=== PATIENT | male | born 1965 | race African-American/Black ===

== ENCOUNTER 2022-08-08 09:50 | Observation (INO) | payer OTHER ==
[2022-08-08] MEDS ORDERED: ACETAMINOPHEN 1000 MG/100 ML BAG IVPB ONE (10:24)
[2022-08-08] MEDS ORDERED: ACETAMINOPHEN INJECTION 100 ML IVPB ONE (10:47)
[2022-08-08 10:53] LABS: EOS % 1.5 % (0-4.5); HEMATOCRIT 42.7 % (35.4-49); HEMOGLOBIN 14.3 GM/dL (11.7-16.9); LYMPH % 30.5 % (8-40); MCH 33.4 pg (25.7-33.7); MCHC 33.4 g/dl (32.0-35.9); MEAN PLT VOLUME 7.3 fl (7.5-11.1); MONO % 6.7 % (3.8-10.2); NEUT % 60.3 % (42.8-82.8); PLATELET COUNT 256 10^3/uL (134-434); RBC 4.27 M/mm3 (4.00-5.60); RDW 13.8 % (11.9-15.9); WHITE BLOOD COUNT 6.2 K/mm3 (4.0-10.0)
[2022-08-08 11:04] LABS: EPI CELLS 1 /uL (0-25.1); HYALINE CASTS 0 /uL (0-3.1); URINE APPEARANCE CLEAR; URINE BACTERIA 10 /uL (0-1359); URINE BILIRUBIN NEGATIVE (NEGATIVE); URINE COLOR YELLOW; URINE GLUCOSE (UA) NEGATIVE (NEGATIVE); URINE KETONE NEGATIVE (NEGATIVE); URINE LEUK ESTERASE NEGATIVE (NEGATIVE); URINE NITRITE NEGATIVE (NEGATIVE); URINE PROTEIN 1+ (NEGATIVE); URINE RBC 15 /uL (0-23.9); URINE UROBILINOGEN 0.2 mg/dL (0.2-1.0); URINE WBC 1 /uL (0-25.8)
[2022-08-08 11:13] LABS: BLOOD UREA NITROGEN 10.4 mg/dL (7-18)
[2022-08-08 11:14] LABS: ALBUMIN 3.5 g/dl (3.4-5.0)
[2022-08-08 11:16] LABS: CREATININE 0.9 mg/dL (0.55-1.3)
[2022-08-08 11:18] LABS: BILIRUBIN,TOTAL 0.4 mg/dL (0.2-1); TOT PROT 7.1 g/dl (6.4-8.2)
[2022-08-08] MEDS ORDERED: LISINOPRIL 20 MG TABLET PO ONE (11:24)
[2022-08-08] MEDS ORDERED: KETOROLAC TROMETHAMINE 30 MG/1 ML VIAL IM ONE (13:36)
[2022-08-08] MEDS ORDERED: KETOROLAC TROMETHAMINE 30 MG/1 ML VIAL ONE (14:01)
[2022-08-08] MEDS ORDERED: LISINOPRIL 20 MG TABLET ONE (14:01)
[2022-08-08] MEDS ORDERED: oxyCODONE HCL 5 MG TABLET PO ONE (15:08)
[2022-08-08] MEDS ORDERED: LIDOCAINE 5% TOPICAL PATCH TP ONE ×2 (15:09→15:10)
[2022-08-08] MEDS ORDERED: KETOROLAC TROMETHAMINE 15 MG/ML VIAL IVPUSH ONE (15:12)
[2022-08-08] MEDS ORDERED: oxyCODONE HCL 5 MG TABLET ONE (16:06)
[2022-08-08] MEDS ORDERED: LIDOCAINE 5% TOPICAL PATCH ONE (16:06)
[2022-08-08] MEDS ORDERED: KETOROLAC TROMETHAMINE 15 MG/ML VIAL ONE (16:07)
[2022-08-08] MEDS ORDERED: morphine CARPU-JECT 4 MG/1 ML DISP.SYRIN IVPUSH ONE (17:20)
[2022-08-08] MEDS ORDERED: COLCHICINE 0.6 MG TAB PO ONE ×2 (17:21→18:00)
[2022-08-08] MEDS ORDERED: ACETAMINOPHEN 1000 MG/100 ML BAG IVPB PRN (18:01)
[2022-08-08] MEDS ORDERED: morphine SULFATE 4 MG/ML VIAL ONE (20:09)
[2022-08-08] MEDS ORDERED: COLCHICINE 0.6 MG TAB ONE (20:09)
[2022-08-08] MEDS ORDERED: predniSONE 20 MG TABLET (UD) ONE (20:09)
[2022-08-08] MEDS: predniSONE 20 MG TABLET (UD) PO SCH (20:16)
[2022-08-08] MEDS ORDERED: LIDOCAINE PATCH REMOVAL MC SCH ×2 (22:00)
[2022-08-08] MEDS: NAPROXEN 500 MG TABLET PO SCH (23:54)
[2022-08-09 00:14] VITALS: RESP 20; BMI 46.1
[2022-08-09 07:11] VITALS: TEMP 98
[2022-08-09] MEDS ORDERED: ACETAMINOPHEN 325 MG TABLET (FP) PO PRN (09:39)
[2022-08-09] MEDS ORDERED: LISINOPRIL 20 MG TABLET PO SCH (10:00)
[2022-08-09] MEDS ORDERED: COLCHICINE 0.6 MG TAB PO SCH (10:00)
[2022-08-09] MEDS ORDERED: amLODIPine BESYLATE 10 MG TABLET (FP) PO SCH (10:00)
[2022-08-09] MEDS ORDERED: ENOXAPARIN NA (PORCINE) 40 MG/0.4 ML DISP.SYRIN SQ SCH (10:00)
[2022-08-09] MEDS: predniSONE 20 MG TABLET (UD) PO SCH (10:32)
[2022-08-09] MEDS: NAPROXEN 500 MG TABLET PO SCH (10:32)
[2022-08-09 10:37] VITALS: BP 171/91; PULSE 73
[2022-08-09 10:43] LABS: HEMATOCRIT 43.1 % (35.4-49); HEMOGLOBIN 14.5 GM/dL (11.7-16.9); MCH 33.3 pg (25.7-33.7); MCHC 33.6 g/dl (32.0-35.9); MEAN CELL VOLUME 99.2 fl (80-96); MEAN PLT VOLUME 7.8 fl (7.5-11.1); PLATELET COUNT 299 10^3/uL (134-434); RBC 4.35 M/mm3 (4.00-5.60); RDW 13.4 % (11.9-15.9); WHITE BLOOD COUNT 7.4 K/mm3 (4.0-10.0)
[2022-08-09 11:13] LABS: BLOOD UREA NITROGEN 13.5 mg/dL (7-18); CALCIUM 9.2 mg/dL (8.5-10.1); MAGNESIUM 2.3 mg/dL (1.8-2.4)
[2022-08-09 11:16] LABS: CREATININE 0.9 mg/dL (0.55-1.3); PHOSPHOROUS 3.4 mg/dL (2.5-4.9)
== END 2022-08-09 14:09 | disposition home or self-care (01) ==
LOC: JER 09:50 → JERBED 17:23 → J8W 23:23
PROVIDERS: ADMIT Internal Medicine; ATTEND Internal Medicine
PROC: 3E033NZ Introduction of Analgesics, Hypnotics, Sedatives into Peripheral Vein, Percutaneous Approach (ICD-10-PCS; principal; 2022-08-08)
PROC: 3E023GC Introduction of Other Therapeutic Substance into Muscle, Percutaneous Approach (ICD-10-PCS; 2022-08-08)
PROC: 3E0333Z Introduction of Anti-inflammatory into Peripheral Vein, Percutaneous Approach (ICD-10-PCS; 2022-08-08)
DX: I11.0 Hypertensive heart disease with heart failure (principal); M10.9 Gout, unspecified; B19.20 Unspecified viral hepatitis C without hepatic coma; J45.909 Unspecified asthma, uncomplicated; M71.20 Synovial cyst of popliteal space [Baker], unspecified knee; M79.606 Pain in leg, unspecified; F12.10 Cannabis abuse, uncomplicated; Z59.00 Homelessness unspecified; F17.210 Nicotine dependence, cigarettes, uncomplicated
CPT/HCPCS: 36415; 71046-TC-FY; 74177-TC; 80048; 80053; 81003; 83735; 83880; 84100; 84484; 85025; 85027; 85379; 87086; 93005; 93010; 93970-TC; 99285-25; C9803-CS; G0378; Q9967; U0003; U0005

== ENCOUNTER 2023-04-06 09:50 | Emergency (ER) | payer OTHER ==
[2023-04-06 10:05] VITALS: BP 124/79; PULSE 68; RESP 16; TEMP 97.6; BMI 38.1
[2023-04-06] MEDS ORDERED: predniSONE 20 MG TABLET (UD) PO ONE (11:28)
[2023-04-06] MEDS ORDERED: predniSONE 20 MG TABLET (UD) ONE (11:36)
== END 2023-04-06 13:20 | disposition home or self-care (01) ==
LOC: JER 09:50
DX: R60.0 Localized edema (principal); M79.675 Pain in left toe(s); M20.12 Hallux valgus (acquired), left foot; M10.9 Gout, unspecified
CPT/HCPCS: 99283-25

== ENCOUNTER 2023-06-19 10:16 | Emergency (ER) | payer OTHER ==
[2023-06-19 10:50] VITALS: BP 138/81; PULSE 68; RESP 18; TEMP 98.5; BMI 38.2
[2023-06-19] MEDS ORDERED: predniSONE 20 MG TABLET (UD) PO ONE (12:26)
[2023-06-19] MEDS ORDERED: KETOROLAC TROMETHAMINE 30 MG/1 ML VIAL IM ONE (12:26)
[2023-06-19] MEDS ORDERED: KETOROLAC TROMETHAMINE 60 MG/2 ML VIAL ONE (12:31)
[2023-06-19] MEDS ORDERED: predniSONE 20 MG TABLET (UD) ONE (12:31)
== END 2023-06-19 14:34 | disposition home or self-care (01) ==
LOC: JER 10:16
PROC: 3E0233Z Introduction of Anti-inflammatory into Muscle, Percutaneous Approach (ICD-10-PCS; principal; 2023-06-19)
DX: M25.571 Pain in right ankle and joints of right foot (principal); M25.572 Pain in left ankle and joints of left foot; M25.871 Other specified joint disorders, right ankle and foot; M25.872 Other specified joint disorders, left ankle and foot; M10.9 Gout, unspecified
CPT/HCPCS: 73610-TC-LT-FY; 73610-TC-RT-FY; 73630-TC-LT; 73630-TC-RT-FY; 99284-25

== ENCOUNTER 2023-09-19 12:56 | Emergency (ER) | payer OTHER ==
[2023-09-19 13:05] VITALS: BP 146/82; PULSE 82; RESP 18; TEMP 98.1; BMI 37.0
[2023-09-19] MEDS ORDERED: KETOROLAC TROMETHAMINE 30 MG/1 ML VIAL IM ONE (14:02)
[2023-09-19] MEDS ORDERED: KETOROLAC TROMETHAMINE 30 MG/1 ML VIAL ONE (14:08)
== END 2023-09-19 15:25 | disposition home or self-care (01) ==
LOC: JERFT 12:56
PROC: 3E0233Z Introduction of Anti-inflammatory into Muscle, Percutaneous Approach (ICD-10-PCS; principal; 2023-09-19)
DX: M25.551 Pain in right hip (principal); M16.11 Unilateral primary osteoarthritis, right hip
CPT/HCPCS: 73502-TC-RT-FY; 96372; 99284-25

== ENCOUNTER 2023-12-05 08:57 | Emergency (ER) | payer OTHER ==
[2023-12-05 09:05] VITALS: BP 145/94; PULSE 71; RESP 18; TEMP 98.2; BMI 38.0
== END 2023-12-05 10:49 | disposition home or self-care (01) ==
LOC: JER 08:57
DX: I10 Essential (primary) hypertension (principal)
CPT/HCPCS: 93005; 93010; 99283-25

== ENCOUNTER 2024-04-22 06:18 | Emergency (ER) | payer OTHER ==
[2024-04-22 06:25] VITALS: BP 144/92; PULSE 77; RESP 16; TEMP 98.5; BMI 38.1
[2024-04-22] MEDS ORDERED: DEXTROSE 5%-WATER 100 ML IVPB ONE (06:46)
[2024-04-22] MEDS ORDERED: ACETAMINOPHEN 500 MG TABLET (FP) ONE (07:44)
[2024-04-22] MEDS: ACETAMINOPHEN 500 MG TABLET (FP) PO ONE (08:00)
[2024-04-22] MEDS ORDERED: KETOROLAC TROMETHAMINE 30 MG/1 ML VIAL ONE (08:35)
[2024-04-22] MEDS: KETOROLAC TROMETHAMINE 30 MG/1 ML VIAL IM ONE (08:39)
== END 2024-04-22 11:50 | disposition home or self-care (01) ==
LOC: JER 06:18
PROC: 3E0133Z Introduction of Anti-inflammatory into Subcutaneous Tissue, Percutaneous Approach (ICD-10-PCS; principal; 2024-04-22)
DX: M25.562 Pain in left knee (principal); M25.462 Effusion, left knee; X50.1XXA Overexertion from prolonged static or awkward postures, initial encounter; Y92.018 Other place in single-family (private) house as the place of occurrence of the external cause
CPT/HCPCS: 73564-TC-LT-FY; 99284-25

== ENCOUNTER 2024-11-21 04:34 | Day surgery (SDC) | payer OTHER ==
[2024-11-21] MEDS: BUPIVACAINE HCL/PF 0.25% (2.5MG/ML) 10 ML VIAL IJ ONE ×2
[2024-11-21] MEDS ORDERED: ACETAMINOPHEN 500 MG TABLET (FP) PO PRN (08:40)
[2024-11-21 10:17] VITALS: RESP 18; BMI 37.3
[2024-11-21] MEDS: LIDOCAINE HCL 1% PRESERVATIVE FREE - 30ML VIAL IJ ONE ×2 (11:51)
[2024-11-21] MEDS: TRIAMCINOLONE ACET 40MG/1ML VIAL IM ONE (11:54)
[2024-11-21] MEDS: IOHEXOL 180 MG/1 ML ML IJ ONE ×2 (11:54)
[2024-11-21] MEDS: BUPIVACAINE HCL/PF 0.5% (5 MG/ML) 30 ML VIAL IJ ONE ×3 (11:54)
[2024-11-21 12:09] VITALS: BP 180/114; PULSE 80; TEMP 97.8
== END 2024-11-21 12:25 | disposition home or self-care (01) ==
LOC: JASU-SURG 04:34 → MERGE 15:00
PROVIDERS: ATTEND Pain Medicine Pain Medicine
PROC: 3E0U3BZ Introduction of Anesthetic Agent into Joints, Percutaneous Approach (ICD-10-PCS; 2024-11-21)
PROC: 3E0U33Z Introduction of Anti-inflammatory into Joints, Percutaneous Approach (ICD-10-PCS; principal; 2024-11-21 13:30)
DX: M16.11 Unilateral primary osteoarthritis, right hip (principal)
CPT/HCPCS: 76000-TC-FY